=== PATIENT | female | born 1980 | race Caucasian/White ===

== ENCOUNTER 2020-11-03 20:01 | Emergency (ER) | payer OTHER ==
[~2020-11-03] VITALS: Ht 167.6 cm; Wt 101.8 kg
[2020-11-03] MEDS ORDERED: ACETAMINOPHEN 325 MG TABLET PO ONE (22:15)
[2020-11-03] MEDS ORDERED: LIDOCAINE 5% TRANSDERMAL PATCH TD ONE (22:15)
[2020-11-03] MEDS ORDERED: KETOROLAC TROMETHAMINE 30 MG/ML VIAL IM ONE (23:30)
[2020-11-04 01:33] VITALS: BP 127/78
== END 2020-11-04 02:36 | disposition home or self-care (01) ==
LOC: EMS 20:06
DX: M54.5 Low back pain (principal)
CPT/HCPCS: 72040; 72100; 96372; 99284; J1885

== ENCOUNTER 2024-08-17 00:44 | Emergency (ER) | payer OTHER ==
[~2024-08-17] VITALS: Ht 162.6 cm; Wt 101.4 kg
[2024-08-17 00:45] VITALS: TEMP 98.1
[2024-08-17] MEDS: SODIUM CHLORIDE 0.9% 1,000 ML IV ONE (01:10)
[2024-08-17] MEDS: METOCLOPRAMIDE HCL 5 MG/ML 2 ML VIAL IVP ONE (01:10)
[2024-08-17] MEDS: FAMOTIDINE 20 MG/2 ML VIAL IVP ONE (01:11)
[2024-08-17 01:12] LABS: BASOPHILS % (AUTO) 0.6 % (0.0-2.0); EOSINOPHILS % (AUTO) 3.7 % (1.0-6.0); HEMATOCRIT 38.4 % (36-46); LYMPHOCYTES # (AUTO) 2.8 K/uL (1.0-4.8); LYMPHOCYTES % (AUTO) 23.2 % (22.0-44.0); MEAN CORPUSCULAR HEMOGLOBIN 25.4 pg (26.0-34.0); MEAN CORPUSCULAR HGB CONC 31.3 G/dL (31.0-37.0); MEAN CORPUSCULAR VOLUME 81 fL (80-100); MONOCYTES # (AUTO) 0.7 K/uL (0.1-1.0); MONOCYTES % (AUTO) 5.9 % (2.0-9.0); NEUTROPHILS # (AUTO) 8.1 K/uL (1.8-7.7); NEUTROPHILS % (AUTO) 66.6 % (40.0-70.0); PLATELET COUNT (AUTO) 374 K/uL (150-450); RED BLOOD CELL COUNT(AUTO) 4.74 MIL/uL (4.00-5.20); RED CELL DISTRIBUTION WIDTH 16.6 % (11.5-14.5); WHITE BLOOD COUNT (AUTO) 12.2 K/uL (4.5-11.0)
[2024-08-17 01:28] LABS: CALCIUM, TOTAL 8.5 mg/dL (8.8-10.5); CREATININE 1.14 mg/dL (0.60-1.30); POTASSIUM 3.1 mmol/L (3.5-5.1)
[2024-08-17 01:34] LABS: ALBUMIN 3.3 g/dL (3.4-5.0); BILIRUBIN,DIRECT 0.1 mg/dL (0.00-0.20); BILIRUBIN,TOTAL 0.3 mg/dL (0.1-1.0); TOTAL PROTEIN, SERUM 7.1 g/dL (6.4-8.2)
[2024-08-17 02:22] LABS: APPEARANCE,URINE CLEAR (CLEAR); BILIRUBIN,URINE NEGATIVE (NEGATIVE); COLOR,URINE COLORLESS (YELLOW); GLUCOSE, URINE (UA) NEGATIVE (NEGATIVE); KETONES,URINE NEGATIVE (NEGATIVE); LEUKOCYTE ESTERASE ,URINE NEGATIVE (NEGATIVE); NITRATE,URINE NEGATIVE (NEGATIVE); OCCULT BLOOD,URINE TRACE (NEGATIVE); PROTEIN,URINE TRACE mg/dL (NEGATIVE); SPECIFIC GRAVITIY, URINE 1.013 (1.003-1.030); UROBILINOGEN,URINE <=1.0 mg/dL (<=1.0)
[2024-08-17 02:24] LABS: BACTERIA,URINE None Seen /HPF (None Seen); RBC,URINE 0-2 /HPF (0-2); SQUAMOUS EPITHELIAL CELL,UR Few /LPF (None Seen); WBC,URINE None Seen /HPF (0-5)
[2024-08-17 02:30] VITALS: BP 148/90; PULSE 85; RESP 19; O2SAT 98
[2024-08-17] MEDS ORDERED: FAMO20 PO (02:30)
== END 2024-08-17 02:46 | disposition home or self-care (01) ==
LOC: EMS 00:46
DX: K29.70 Gastritis, unspecified, without bleeding (principal); R10.11 Right upper quadrant pain; R11.2 Nausea with vomiting, unspecified
CPT/HCPCS: 99285; 96374; 76705; 96361; 96375; 80048; 80076; 81001; 83690; 84702; 85025; 36415; J3490; J2765; J7030